=== PATIENT | male | born 1975 | race Caucasian/White ===

== ENCOUNTER 2024-10-01 08:22 | Day surgery (SDC) | payer OTHER ==
[~2024-10-01] VITALS: Ht 180.3 cm; Wt 82.7 kg
[~2024-10-01 08:22] MED LIST: Bupivacaine 0.5% W/EPI 1:200000 SDV 30 ML Vial ONE; FentaNYL Citrate 50 MCG/ML 2 ML Injection ONE; Keflex500 MG PO; Lactated Ringer's 1,000 ML IV ONE; Midazolam HCl 1MG / ML 2ML Vial ONE; PROM25 PO; Percocet 5-3251 EACH PO
[2024-10-01] MEDS ORDERED: CeFAZolin Sodium 2,000 MG VIAL ONE (08:31)
[2024-10-01] MEDS ORDERED: propofoL 20 ML IV ONE (08:39)
[2024-10-01] MEDS ORDERED: Albuterol HFA200 ACT/6.7 GM INH ONE (09:06)
[2024-10-01] MEDS ORDERED: Lactated Ringer's 1,000 ML IV ONE (09:11)
[2024-10-01] MEDS ORDERED: Sugammadex Sodium 200 MG/2ML SDV (100 MG/ML) ONE (09:13)
[2024-10-01] MEDS ORDERED: FentaNYL Citrate 50 MCG/ML 2 ML Injection ONE ×2 (10:10→11:52)
[2024-10-01] MEDS ORDERED: Ondansetron HCl 2 MG / ML 2ML Vial ONE (10:30)
--- NOTE | 2024-10-01 11:17 | NUR ---
10/01/24 1117 MK MONTILLA DENIES PAIN, DENIES NAUSEA. JUST HUNGRY
[2024-10-01] MEDS ORDERED: HYDROcodone 5-APAP 325 TAB ONE (11:23)
--- NOTE | 2024-10-01 11:42 | NUR ---
10/01/24 1142 MK MONTILLA PT AT BEDSIDE. PT EATING AND DRINKING WO DIFF.
[2024-10-01 11:59] VITALS: BP 129/86
== END 2024-10-01 12:30 | disposition home or self-care (01) ==
LOC: ORSCSDS 08:22
PROVIDERS: Podiatrist Foot & Ankle Surgery
PROC: 0LQW0ZZ Repair Left Foot Tendon, Open Approach (ICD-10-PCS; principal; 2024-10-01 09:45)
DX: S96.922A Laceration of unspecified muscle and tendon at ankle and foot level, left foot, initial encounter (principal); W29.3XXA Contact with powered garden and outdoor hand tools and machinery, initial encounter; F17.210 Nicotine dependence, cigarettes, uncomplicated
CPT/HCPCS: A9270; J0690; J2250; J2405; J2704; J3010; J7120; V2790